=== PATIENT | female | born 1985 | race American Indian/Alaskan Native ===

== ENCOUNTER 2017-09-16 02:12 | Outpatient (CLI) | payer MEDICAID ==
[2017-09-16 02:38] VITALS: BP 101/69
[2017-09-16] MEDS ORDERED: LACTATED RINGERS 500 ML IV ONE (02:44)
--- NOTE | 2017-09-16 04:11 | Ultrasound Report ---
FINAL REPORT EXAM: US OB LIMITED HISTORY: labor TECHNIQUE: Real-time sonography was performed of the gravid uterus and images are submitted for interpretation. PRIORS: 09/13/2017 FINDINGS: There is a single fetus in the uterus. The head is near the internal os. The placenta is anterior and the os is clear. The amniotic fluid index is low at 2.4 cm. A single pocket of fluid identified. The cervix appears dilated up to 3 cm. Cervical length is normal. The heart is beating at a rate of 149 beats per minute. IMPRESSION: 1. head is near the internal os, no longer endocervical canal 2. The cervix is dilated up to 3 cm 3. Low amniotic fluid index
--- NOTE | 2017-09-16 04:51 | Event Note ---
Date: 09/16/17 Pt is a 32 year old HARSH 02[birth year] at 18w5d who was recently admitted from to 09/15/17 with contractions, vaginal bleeding with suspected abruption and cervical incompetence. She received Indomethacin tocolysis on admission and was discharged home once her vaginal bleeding and contractions ceased on 09/15/17. The patient returns this morning with complaint of leakage of fluid. Nitrizine positive fluid in the vagina per retail cashier. Speculum exam positive for pooling of brown tinged fluid. Cervix appears 1 cm dilated on speculum exam. FHTs 150-160s. Pt informed of diagnosis of previable premature rupture of membranes. Pt elects expectant management at this time. Plan to discharge patient home with twice weekly follow up and daily temperatures until 23 weeks when she would be admitted to the hospital. Pt expresses understanding.
== END 2017-09-16 05:40 | disposition home or self-care (01) ==
LOC: TRG 02:12
PROVIDERS: ATTEND Obstetrics & Gynecology
DX: O47.02 False labor before 37 completed weeks of gestation, second trimester (principal); O99.332 Smoking (tobacco) complicating pregnancy, second trimester; Z3A.18 18 weeks gestation of pregnancy
CPT/HCPCS: 76815

== ENCOUNTER 2018-08-24 00:11 | Emergency (ER) | payer MEDICAID, OTHER ==
[2018-08-24 01:06] VITALS: BP 109/80
[2018-08-24 01:30] LABS: Alanine Aminotransferase 17 units/L (7-56); Albumin 3.8 g/dL (3.9-5); BUN/Creatinine Ratio 12; Blood Urea Nitrogen 12 mg/dL (7-17); Calcium 8.8 mg/dL (8.4-10.2); Hemolysis Index 4
[2018-08-24 02:03] LABS: Bilirubin,Urine NEG (Negative); Blood,Urine LG (Negative); Color,Urine Red (Yellow); Mucus,Urine FEW /HPF; Urobilinogen,Urine < 2.0 mg/dL (<2.0)
[2018-08-24 02:06] LABS: Basophils # (Auto) 0.2 K/mm3 (0.0-0.1); Basophils % (Auto) 1.1 % (0.0-1.8); Eosinophils # (Auto) 0.2 K/mm3 (0.0-0.4); Eosinophils % (Auto) 1.2 % (0.0-4.3); Hematocrit 30.9 % (30.3-42.9); Lymphocytes # (Auto) 3.6 K/mm3 (1.2-5.4); Lymphocytes % (Auto) 25.6 % (13.4-35.0); Mean Corpuscular HGB Conc 32 % (30-34); Mean Corpuscular Volume 74 fl (79-97); Monocytes # (Auto) 1.2 K/mm3 (0.0-0.8); Monocytes % (Auto) 8.6 % (0.0-7.3); Platelet Count 426 K/mm3 (140-440); Red Blood Count 4.21 M/mm3 (3.65-5.03); Red Cell Distribution Width 17.6 % (13.2-15.2)
[2018-08-24 02:08] LABS: Mean Corpuscular Hemoglobin 24 pg (28-32)
[2018-08-24] MEDS ORDERED: TORADOL IV ONE (02:34)
[2018-08-24] MEDS ORDERED: BENADRYL IV ONE (02:34)
[2018-08-24] MEDS ORDERED: NACL 0.9% 1000 ML 1,000 ML IV ONE (02:34)
[2018-08-24] MEDS ORDERED: REGLAN IV ONE (02:34)
[2018-08-24] MEDS ORDERED: ROCEPHIN/NS 1 GM/50 ML 1 GM/50 ML BAG IV ONE (02:34)
--- NOTE | 2018-08-24 03:12 | Emergency Department Report ---
ED Abdominal Pain HPI - General Chief Complaint: Abdominal Pain Stated Complaint: MIGRAINES ABD PAIN Time Seen by Provider: 08/24/18 02:32 Source: patient Mode of arrival: Ambulatory Limitations: No Limitations - History of Present Illness Initial Comments: pt is a 33 y/o aaf who presents for abd pain with abnormal vaginal bleeding states she starte BC shots and has been having irregular periods cannot see [facility] until next , [facility], states migrain headache started 3 days ago 5/10 sharp frontal this is same location and intensity as headaches of past. pt denies fever or chills does endorse urinary frequency. MD Complaint: abdominal pain Onset/Timin -: days(s) Location: suprapubic Radiation: suprapubic Migration to: suprapubic Severity scale (0 -10): 9 Quality: cramping Consistency: constant Improves With: nothing Worsens With: nothing Associated Symptoms: dysuria - Related Data LMP Date: 08/07/18 Home Medications Medication Instructions Recorded Confirmed Last Taken Pnv No.95/Ferrous Fum/Folic AC 1 tab PO DAILY 09/13/17 09/13/17 Unknown [ Formula Tablet] Previous Rx's Medication Instructions Recorded Last Taken Type Cyclobenzaprine [Flexeril] 10 mg PO QHS PRN #10 tablet 03/01/18 Unknown Rx Ibuprofen [Motrin] 600 mg PO Q8H PRN #20 tablet 03/01/18 Unknown Rx Nitrofurantoin [place]/M-Cryst 100 mg PO Q12HR 7 Days #14 capsule 08/24/18 Unknown Rx [Macrobid CAP] traMADol [Ultram] 50 mg PO Q6HR PRN #12 tablet 08/24/18 Unknown Rx Allergies Allergy/AdvReac Type Severity Reaction Status Date / Time No Known Allergies Allergy Verified 09/13/17 04:57 ED Review of Systems ROS: Stated complaint: MIGRAINES ABD PAIN Other details as noted in HPI Constitutional: denies: chills, fever Eyes: denies: eye pain, eye discharge, vision change ENT: denies: ear pain, throat pain Respiratory: denies: cough, shortness of breath, wheezing Cardiovascular: denies: chest pain, palpitations Endocrine: no symptoms reported Gastrointestinal: abdominal pain (cramping ). denies: nausea, vomiting, diarrhea, constipation, hematemesis, melena, hematochezia Genitourinary: frequency. denies: urgency, dysuria, hematuria, discharge Musculoskeletal: denies: back pain, joint swelling, arthralgia Skin: denies: rash, lesions Neurological: denies: headache, weakness, paresthesias Psychiatric: denies: anxiety, depression Hematological/Lymphatic: denies: easy bleeding, easy bruising ED Past Medical Hx - Past Medical History Previous Medical History?: Yes Hx Hypertension: No Hx Diabetes: No Hx Deep Vein Thrombosis: No Hx Renal Disease: Yes (right kidney removed) Hx Sickle Cell Disease: No (trait, not disease) Hx Seizures: No Hx Kidney Stones: Yes (right kidney removed, h/o kidney stones L kidney) Hx Asthma: No Hx COPD: No Hx HIV: No - Surgical History Past Surgical History?: Yes Hx Cholecystectomy: Yes Additional Surgical History: right kidney - Social History Smoking Status: Current Every Day Smoker Substance Use Type: None - Medications Home Medications: Home Medications Medication Instructions Recorded Confirmed Last Taken Type Pnv No.95/Ferrous Fum/Folic AC 1 tab PO DAILY 09/13/17 09/13/17 Unknown History [ Formula Tablet] Cyclobenzaprine [Flexeril] 10 mg PO QHS PRN #10 tablet 03/01/18 Unknown Rx Ibuprofen [Motrin] 600 mg PO Q8H PRN #20 tablet 03/01/18 Unknown Rx Nitrofurantoin [place]/M-Cryst 100 mg PO Q12HR 7 Days #14 capsule 08/24/18 Unknown Rx [Macrobid CAP] traMADol [Ultram] 50 mg PO Q6HR PRN #12 tablet 08/24/18 Unknown Rx ED Physical Exam - General Limitations: No Limitations General appearance: alert, in no apparent distress - Head Head exam: Present: atraumatic, normocephalic - Eye Eye exam: Present: normal appearance, PERRL, EOMI Pupils: Absent: normal accommodation - ENT ENT exam: Present: mucous membranes moist - Neck Neck exam: Present: normal inspection, full ROM. Absent: tenderness, meningismus, lymphadenopathy, thyromegaly - Respiratory Respiratory exam: Present: normal lung sounds bilaterally. Absent: respiratory distress, wheezes, stridor, chest wall tenderness - Cardiovascular Cardiovascular Exam: Present: regular rate, normal rhythm, normal heart sounds. Absent: systolic murmur, diastolic murmur, rubs, gallop - GI/Abdominal GI/Abdominal exam: Present: soft, normal bowel sounds. Absent: distended, tenderness, bruit, hernia - Rectal Rectal exam: Present: deferred - External exam: Present: other (exam deferred per pt ) - Extremities Exam Extremities exam: Present: normal inspection, full ROM. Absent: tenderness, normal capillary refill - Back Exam Back exam: Present: normal inspection, full ROM. Absent: tenderness, CVA tenderness (R), CVA tenderness (L), rash noted - Neurological Exam Neurological exam: Present: alert, oriented X3, CN II-XII intact, normal gait, reflexes normal. Absent: motor sensory deficit - Psychiatric Psychiatric exam: Present: normal affect, normal mood - Skin Skin exam: Present: warm, dry, intact, normal color. Absent: rash ED Course Vital Signs 08/24/18 08/24/18 00:45 02:56 Temperature 98.6 F Pulse Rate 92 H Respiratory 14 16 Rate Blood Pressure 109/80 O2 Sat by Pulse 98 Oximetry ED Medical Decision Making - Lab Data Result diagrams: 08/24/18 00:47 08/24/18 00:47 Labs 08/24/18 08/24/18 08/24/18 00:47 00:47 01:15 WBC 14.0 H RBC 4.21 Hgb 10.0 L Hct 30.9 MCV 74 L MCH 24 L MCHC 32 RDW 17.6 H Plt Count 426 Lymph % (Auto) 25.6 [place] % (Auto) 8.6 H Eos % (Auto) 1.2 Baso % (Auto) 1.1 Lymph # 3.6 [place] # 1.2 H Eos # 0.2 Baso # 0.2 H Seg Neutrophils % 63.5 Seg Neutrophils # 8.9 H Sodium 142 Potassium 3.8 Chloride 107.0 Carbon Dioxide 23 Anion Gap 16 BUN 12 Creatinine 1.0 Estimated GFR > 60 BUN/Creatinine Ratio 12 Glucose 100 Calcium 8.8 Total Bilirubin < 0.20 AST 12 ALT 17 Alkaline Phosphatase 69 Total Protein 7.8 Albumin 3.8 L Albumin/Globulin Ratio 1.0 Urine Color Red Urine Turbidity Slightly-cloudy Urine pH 6.0 Ur Specific [place] 1.013 Urine Protein 100 mg/dl Urine Glucose (UA) Neg Urine Ketones Neg Urine Blood Lg Urine Nitrite Neg Urine Bilirubin Neg Urine Urobilinogen < 2.0 Ur Leukocyte Esterase Mod Urine WBC (Auto) 48.0 H Urine RBC (Auto) 10.0 U Epithel Cells (Auto) 12.0 Urine Mucus Few - Medical Decision Making Symptoms improved headache relieved , abd pain improved plan: dc to home in stable condition DX: AUB , UTI, follow up with [facility] at [facility] in 1-2 days return to ed if symptoms worsen, pt verbalized agreement and understanding of discharge plan. Critical care attestation.: If time is entered above; I have spent that time in minutes in the direct care of this critically ill patient, excluding procedure time. ED Disposition Clinical Impression: Abnormal uterine bleeding (AUB) UTI (urinary tract infection) Qualifiers: Urinary tract infection type: acute cystitis Hematuria presence: without hematuria Qualified Code(s): N30.00 - Acute cystitis without hematuria Disposition: DC-01 TO HOME OR SELFCARE Is pt being admited?: No Does the pt Need Aspirin: No Condition: Stable Instructions: Abdominal Pain (ED), Urinary Tract Infection in Women (ED), Menorrhagia (ED) Prescriptions: Nitrofurantoin [place]/M-Cryst [Macrobid CAP] 100 mg PO Q12HR 7 Days #14 capsule traMADol [Ultram] 50 mg PO Q6HR PRN #12 tablet PRN Reason: Pain Referrals: [facility] [Provider Group] - 3-5 Days Forms: Work/School Release Form(ED) Time of Disposition: 04:33
== END 2018-08-24 04:51 | disposition home or self-care (01) ==
LOC: ED 00:11
DX: N39.0 Urinary tract infection, site not specified (principal); N93.9 Abnormal uterine and vaginal bleeding, unspecified; G43.909 Migraine, unspecified, not intractable, without status migrainosus; F17.200 Nicotine dependence, unspecified, uncomplicated; Z90.5 Acquired absence of kidney; Z90.49 Acquired absence of other specified parts of digestive tract; Z79.899 Other long term (current) drug therapy
CPT/HCPCS: 36415; 80053; 81001; 85025; 87086; 96365; 96375; 99283; J0696; J1200; J1885; J2765; J7030

== ENCOUNTER 2018-12-03 11:21 | Emergency (ER) | payer MEDICAID ==
[2018-12-03 11:34] VITALS: BP 107/67
--- NOTE | 2018-12-03 11:36 | Event Note ---
ED Screening Note ED Screening Note: subjective fever chills body aches nausea and vomiting and diarrhea mild dry cough no rhinorrhea symptoms began tuesday PMHx of one kidney no allergies to meds no influenza vaccine this year
--- NOTE | 2018-12-03 11:37 | Emergency Department Report ---
- General Chief Complaint: Upper Respiratory Infection Stated Complaint: FLU LIKE SYMPTOMS Time Seen by Provider: 12/03/18 11:29 Source: patient Mode of arrival: Ambulatory Limitations: No Limitations - History of Present Illness Initial Comments: pt is a 33 yo female who presents to the ED with c/o subjective fever that began two days ago. she has associated chills, body aches, a couple of episodes of nausea and vomiting and diarrhea, mild dry cough and rhinorrhea. she denies any sore throat, productive cough, or ear pain. she did not have the influenza vaccine this year. she has a PMHx of one kidney. she denies any allergies to meds. - Related Data Home Medications Medication Instructions Recorded Confirmed Last Taken Pnv No.95/Ferrous Fum/Folic AC 1 tab PO DAILY 09/13/17 09/13/17 Unknown [ Formula Tablet] Previous Rx's Medication Instructions Recorded Last Taken Type Cyclobenzaprine [Flexeril] 10 mg PO QHS PRN #10 tablet 03/01/18 Unknown Rx Ibuprofen [Motrin] 600 mg PO Q8H PRN #20 tablet 03/01/18 Unknown Rx Nitrofurantoin [place]/M-Cryst 100 mg PO Q12HR 7 Days #14 capsule 08/24/18 Unknown Rx [Macrobid CAP] traMADol [Ultram] 50 mg PO Q6HR PRN #12 tablet 08/24/18 Unknown Rx Oseltamivir [Tamiflu] 75 mg PO BID 5 Days #10 capsule 12/03/18 Unknown Rx Allergies Allergy/AdvReac Type Severity Reaction Status Date / Time No Known Allergies Allergy Verified 09/13/17 04:57 ED Review of Systems ROS: Stated complaint: FLU LIKE SYMPTOMS Other details as noted in HPI Comment: All other systems reviewed and negative ED Past Medical Hx - Past Medical History Previous Medical History?: Yes Hx Hypertension: No Hx Diabetes: No Hx Deep Vein Thrombosis: No Hx Renal Disease: Yes (right kidney removed) Hx Sickle Cell Disease: No (trait, not disease) Hx Seizures: No Hx Kidney Stones: Yes (right kidney removed, h/o kidney stones L kidney) Hx Asthma: No Hx COPD: No Hx HIV: No - Surgical History Past Surgical History?: Yes Hx Cholecystectomy: Yes Additional Surgical History: right kidney - Social History Smoking Status: Never Smoker Substance Use Type: None - Medications Home Medications: Home Medications Medication Instructions Recorded Confirmed Last Taken Type Pnv No.95/Ferrous Fum/Folic AC 1 tab PO DAILY 09/13/17 09/13/17 Unknown History [ Formula Tablet] Cyclobenzaprine [Flexeril] 10 mg PO QHS PRN #10 tablet 03/01/18 Unknown Rx Ibuprofen [Motrin] 600 mg PO Q8H PRN #20 tablet 03/01/18 Unknown Rx Nitrofurantoin [place]/M-Cryst 100 mg PO Q12HR 7 Days #14 capsule 08/24/18 Unknown Rx [Macrobid CAP] traMADol [Ultram] 50 mg PO Q6HR PRN #12 tablet 08/24/18 Unknown Rx Oseltamivir [Tamiflu] 75 mg PO BID 5 Days #10 capsule 12/03/18 Unknown Rx ED Physical Exam - General Limitations: No Limitations General appearance: alert, in no apparent distress - Head Head exam: Present: atraumatic, normocephalic - Eye Eye exam: Present: normal appearance - ENT ENT exam: Present: normal orophraynx, mucous membranes moist, other (mucus drainage from bilateral nares, right cerumen impaction, left TM and canal are normal, no sinus TTP bilaterally) - Respiratory Respiratory exam: Present: normal lung sounds bilaterally. Absent: respiratory distress, wheezes, rales, rhonchi, stridor, chest wall tenderness, accessory muscle use, decreased breath sounds, prolonged expiratory - Cardiovascular Cardiovascular Exam: Present: normal rhythm, tachycardia, normal heart sounds. Absent: systolic murmur, diastolic murmur, rubs, gallop - Neurological Exam Neurological exam: Present: alert, oriented X3 - Psychiatric Psychiatric exam: Present: normal affect, normal mood - Skin Skin exam: Present: warm, dry, intact ED Course Vital Signs 12/03/18 11:30 Temperature 99.5 F Pulse Rate 120 H Respiratory 18 Rate Blood Pressure 107/67 O2 Sat by Pulse 97 Oximetry ED Medical Decision Making - Medical Decision Making pt is a 33 yo female who presents to the ED with c/o subjective fever that began two days ago. she has associated chills, body aches, a couple of episodes of nausea and vomiting and diarrhea, mild dry cough and rhinorrhea. she denies any sore throat, productive cough, or ear pain. she did not have the influenza vaccine this year. she has a PMHx of one kidney. she denies any allergies to meds. vitals with mild low grade temp and tachycardia. clinically pt meets the s/sx of influenza. pt presenting within 48 hours of symptoms, will tx pt with tamiflu. discussed the importance with pt of staying well hydrated. on exam: right ear cerumen impaction, mucus drainage bilateral nares, breath sounds are clear bilaterally without w/r/r. pt given prescription for tamiflu. advised pt to please take medication as prescribed. please use debrox ear cleaning kit for ear wax in the right ear. may take tylenol or ibuprofen for temperature of 100.4 or greater or for body aches. drink plenty of fluids, stay well hydrated. may use humidifier, drink warm tea, eat soup broths. follow up with a primary care doctor in the next 3 days for reexamination. return to the emergency room for any new or worsening symptoms. - Differential Diagnosis URI, viral syndrome, influenza, PNA, pharyngitis, sinusitis Critical care attestation.: If time is entered above; I have spent that time in minutes in the direct care of this critically ill patient, excluding procedure time. ED Disposition Clinical Impression: Influenza Cerumen impaction Qualifiers: Laterality: right Qualified Code(s): H61.21 - Impacted cerumen, right ear Disposition: - TO HOME OR SELFCARE Is pt being admited?: No Does the pt Need Aspirin: No Condition: Stable Instructions: Cerumen Impaction (ED), Influenza (ED) Additional Instructions: please take medication as prescribed. please use debrox ear cleaning kit for ear wax in the right ear. may take tylenol or ibuprofen for temperature of 100.4 or greater or for body aches. drink plenty of fluids, stay well hydrated. may use humidifier, drink warm tea, eat soup broths. follow up with a primary care doctor in the next 3 days for reexamination. return to the emergency room for any new or worsening symptoms. Prescriptions: Oseltamivir [Tamiflu] 75 mg PO BID 5 Days #10 capsule Referrals: PRIMARY CARE, [Primary Care Provider] - 2-3 Days Time of Disposition: 12:00 Print Language: GAMBIAN
== END 2018-12-03 12:30 | disposition home or self-care (01) ==
LOC: ED 11:21
DX: J11.1 Influenza due to unidentified influenza virus with other respiratory manifestations (principal); H61.21 Impacted cerumen, right ear; Z79.899 Other long term (current) drug therapy; Z87.442 Personal history of urinary calculi; Z90.49 Acquired absence of other specified parts of digestive tract
CPT/HCPCS: 99282

== ENCOUNTER 2018-12-16 23:19 | Emergency (ER) | payer MEDICAID, OTHER ==
[2018-12-16 23:24] VITALS: BP 107/75
[2018-12-17] MEDS ORDERED: traMADol 50 MG TAB PO ONE (00:35)
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
== END 2018-12-17 01:55 | disposition home or self-care (01) ==
LOC: ED 23:19
DX: S16.1XXA Strain of muscle, fascia and tendon at neck level, initial encounter (principal); S39.012A Strain of muscle, fascia and tendon of lower back, initial encounter; M06.9 Rheumatoid arthritis, unspecified; F17.200 Nicotine dependence, unspecified, uncomplicated; Z79.1 Long term (current) use of non-steroidal anti-inflammatories (NSAID); Z90.49 Acquired absence of other specified parts of digestive tract; Z79.899 Other long term (current) drug therapy; V87.7XXA Person injured in collision between other specified motor vehicles (traffic), initial encounter; Y93.89 Activity, other specified; Y92.488 Other paved roadways as the place of occurrence of the external cause; Y99.8 Other external cause status
CPT/HCPCS: 72040; 72100; 99283

== ENCOUNTER 2020-02-01 14:53 | Emergency (ER) | payer MEDICAID, OTHER ==
[2020-02-01 16:36] VITALS: BP 110/74
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
== END 2020-02-01 16:43 | disposition home or self-care (01) ==
LOC: ED 14:53
DX: S16.1XXA Strain of muscle, fascia and tendon at neck level, initial encounter (principal); S39.012A Strain of muscle, fascia and tendon of lower back, initial encounter; M19.91 Primary osteoarthritis, unspecified site; F17.200 Nicotine dependence, unspecified, uncomplicated; Z90.49 Acquired absence of other specified parts of digestive tract; Z98.890 Other specified postprocedural states; Z79.1 Long term (current) use of non-steroidal anti-inflammatories (NSAID); Z79.899 Other long term (current) drug therapy; V49.49XA Driver injured in collision with other motor vehicles in traffic accident, initial encounter; Y93.89 Activity, other specified; Y92.410 Unspecified street and highway as the place of occurrence of the external cause; Y99.8 Other external cause status
CPT/HCPCS: 99282

== ENCOUNTER 2021-01-22 12:39 | Outpatient (CLI) | payer OTHER ==
--- NOTE | 2021-01-22 14:11 | Cat Scan Report ---
CT ABDOMEN AND PELVIS WITHOUT CONTRAST INDICATION / CLINICAL INFORMATION: KIDNEY STONES. TECHNIQUE: Axial CT images were obtained through the abdomen and pelvis without IV contrast. All CT scans at this location are performed using CT dose reduction for ALARA by means of automated exposure control. COMPARISON: None available. FINDINGS: LOWER CHEST: No significant abnormality. LIVER: No significant abnormality. GALLBLADDER: Cholecystectomy. PANCREAS: No significant abnormality. SPLEEN: No significant abnormality. ADRENALS: No significant abnormality. RIGHT KIDNEY / URETER: Surgically absent LEFT KIDNEY / URETER: Multiple, 2 to 3 mm nonobstructing intrarenal calculi. There are also some smal l cortical based calcifications of the left kidney STOMACH / SMALL BOWEL: No significant abnormality. COLON: No significant abnormality. APPENDIX: Nonvisualized PERITONEUM: No free fluid, free air or organized collection. LYMPH NODES: No significant adenopathy. AORTA / ARTERIES/ VEINS: No significant abnormality. URINARY BLADDER: No significant abnormality. REPRODUCTIVE ORGANS: Multiple uterine fibroids, one of which is peripherally calcified in the right u terine wall. ADDITIONAL FINDINGS: None. SKELETAL SYSTEM: No significant abnormality. IMPRESSION: 1. No acute abnormality. 2. Right kidney is surgically absent. 3. There are a few 2 to 3 mm nonobstructing intrarenal calculi on the left with some scattered corti poornima calcifications of the left kidney. 4. Multiple uterine fibroids. Signer Name: Jovan Montaño MD Signed: 01/22/2021 2:07 PM Workstation Name: [id number]
== END 2021-01-22 12:40 | disposition home or self-care (01) ==
LOC: CT 12:39
PROVIDERS: ATTEND Urology
DX: N20.0 Calculus of kidney (principal); D25.9 Leiomyoma of uterus, unspecified; N28.89 Other specified disorders of kidney and ureter; Z90.49 Acquired absence of other specified parts of digestive tract; Z90.5 Acquired absence of kidney
CPT/HCPCS: 74176